=== PATIENT | female | born 1965 | race Caucasian/White ===

== ENCOUNTER 2016-06-18 15:58 | Inpatient (IN) | payer OTHER ==
[~2016-06-18] VITALS: Ht 160 cm; Wt 106.4 kg
[~2016-06-18 15:58] MED LIST: Meropenem Inj 1,000 MG in IV Premix 1 EACH IV SCH
[2016-06-18 16:03] VITALS: BP 127/81; PULSE 115; RESP 16; O2SAT 91
--- NOTE | 2016-06-18 16:33 | ED.REPORT ---
HPI-Abd Pain F 40 and Over Date of Service Jun 18, 2016 ED Provider: Dr. Brendon Christianson M.D. A healthy 51 year old female presents to the ED from Urgent Care with a perforated viscus on CT. She has had a week of LLQ abdominal pain, intermittent subjective fever, and alternating constipation/diarrhea. The pain is exacerbated with movement. At Urgent Care she was tender with a white count of 23.8 th/mm3. Imaging demonstrated pneumoperitoneum, bowel thickening, and pericolonic fat stranding in LLQ. She was transferred here for further work-up. The general surgeon, Dr. Gu, is aware of patient and will consult. The patient denies nausea. Her last liquid intake was 8oz water at 1500 this afternoon and her last meal was a piece of toast for breakfast this morning. Nursing Notes Stated Complaint: SEVERE ABDOMINAL ISSUES - FROM URGENT CARE Chief Complaint: Female Abdominal Pain Nursing Notes Reviewed: Yes Allergies: Coded Allergies: Fish Containing Products (Verified Allergy, Severe, anaphylaxis, 06/18/16) shellfish derived (Verified Allergy, Severe, anaphylaxis, 06/18/16) Penicillins (Verified Allergy, Unknown, ANAPHYLAXIS, 06/18/16) No Active Prescriptions or Reported Meds General Time Seen by MD: 16:33 Chief Complaint Abdominal pain Hx Obtained From: Patient Arrived By: Walk-in Sudden in Onset?: No Onset Occurred: 1 week ago Symptom Duration: Since onset Progression since Onset: Gradually worsening Location: : Diffuse Quality: Painful Severity: Current: Moderate Severity: Maximum: Moderate Associated with: Reports: Constipation, Diarrhea, Fever (Intermittent, subjective), Denies: Nausea Exacerbated by: Movement Pertinent Negative: Relieved by nothing Recent Healthcare: Recent doctor visit Similar Sx Previous: No Past Medical History Past Medical History Healthy Past Surgical History None reported Family History No colon cancer Smoking History Current Every Day Smoker Social History Very rare alcohol consumption Other Social History: Good social support, Ambulatory Status Independent Review of Systems Constitutional: Reports: Fever (Intermittent, subjective) GI: Reports: Abdominal pain, Constipation, Diarrhea, Denies: Nausea Complete sys rev & neg: except as marked. Physical Exam Vital Signs Vital Signs (First) Date Time Temp Pulse Resp B/P Pulse Ox O2 Delivery O2 Flow Rate FiO2 06/18/16 16:03 37.6 115 16 127/81 91 Initial VS: Reviewed Head / Eyes: Atraumatic, Normocephalic ENT: Conjunctiva normal, No scleral icterus Skin: Warm, Dry Neurologic: Alert, Oriented, Nonfocal Psychiatric: Mood/affect normal, Behavior normal, Normal thought content General/Constitutional: Awake, Alert Respiratory / Chest: Breath sounds = bilat, No respiratory distress Wheezing / Retractions: Positive: Wheezing moderate (Scattered) Cardiovascular: Heart rate NL, Regular rhythm, Heart sounds NL, No gallop, No murmurs, No rubs Abdomen: BS normoactive Tenderness/Guarding/Rebound: Positive: Tender LLQ... (with guarding) Interpretation & Diagnostics URGENT CARE 06/18/2016: ABDOMEN CT W/ IV AND ORAL CONTRAST IMPRESSION: 1. Focal bowel thickening, pericolonic fat stranding, and pneumoperitoneum as above. Although these findings may be associated with acute perforated diverticulitis, there are no definite diverticula visualized. Additionally, there is a questionable polypoid mass in this region. Neoplasm should be considered in the differential diagnosis. Surgical consultation recommended. These findings were discussed with Emilia Weeks at 3:15 PM on 06/18/16. 2. Probable cholelithiasis. No findings to suggest choledocholithiasis or acute cholecystitis. 3. Thickening of the medial limb of the left adrenal gland. Adrenal mass protocol CT or MRI recommended non-emergently to further characterize this finding. Dictated by: Pamela Dumont M.D. on 06/18/2016 at 15:11 Chemistry from Urgent Care reviewed. LFTs normal, creatinine normal at 0.73, glucose 105, potassium normal at 4.3, sodium 137, CO2 is 22. Lab Results Interpretation Result Diagram: 06/18/16 1720 Test 06/18/16 17:20 06/18/16 17:26 White Blood Count 22.3th/mm3 (3.8-10.1) Red Blood Count 5.12mil/mm3 (3.90-5.20) Hemoglobin 15.0g/dL (12.0-15.6) Hematocrit 44.1% (35.0-46.0) Mean Corpuscular Volume 86.1fL (81-100) Mean Corpuscular Hemoglobin 29.3pg (27.0-35.0) Mean Corpuscular Hemoglobin Concent 34.0% (32.0-37.0) Red Cell Distribution Width 13.1% (12.3-15.4) Platelet Count 329bil/L (150-400) Neutrophils (%) (Auto) 79.3% (40-74) Lymphocytes (%) (Auto) 14.7% (14-46) Monocytes (%) (Auto) 5.1% (4-12) Eosinophils (%) (Auto) 0.4% (0-5) Basophils (%) (Auto) 0.2% (0-3) Lactic Acid Level 0.9mmol/L (0.4-2.0) Urine Color Straw (YELLOW) Urine Appearance Clear (CLEAR,HAZY) Urine pH 6.0 (5.0-8.0) Urine Specific [place] <1.005 (1.003-1.035) Urine Protein Negativemg/dL (NEG,TRACE) Urine Glucose (UA) Negativemg/dL (NEGATIVE) Urine Ketones Negativemg/dL (NEGATIVE) Urine Occult Blood Negative (NEGATIVE) Urine Nitrite Negative (NEGATIVE) Urine Bilirubin Negative (NEGATIVE) Urine Urobilinogen Normalmg/dL (NORMAL) Urine Leukocyte Esterase Negative (NEGATIVE) Urine RBC 3-10/hpf (0-2) Urine WBC 0-5/hpf (0-5) Urine Epithelial Cells Occasional/hpf (NONE-MOD) Urine Crystals None seen (NONE SEEN) Urine Bacteria Few/hpf (NONE-FEW) Urine Hyaline Casts None/lpf (NONE) Urine Granular Casts None seen (NONE SEEN) Urine Waxy Casts None seen (NONE SEEN) Urine Red Blood Cell Casts None seen (NONE SEEN) Urine White Blood Cell Casts None seen (NONE SEEN) Urine Mucus None seen (None Seen) Urine Trichomonas None seen (NONE SEEN) Urine Yeast None (NONE SEEN) Urinalysis Comment None Urine Culture Reflexed Not indicated ECG Interpretation ECG Interpretation: Sinus tachycardia rate 113 Otherwise normal Time: 17:21 Interpreted by: ED physician X-Ray Chest Interpretation Chest Xray Interpretation: IMPRESSION: No acute cardiopulmonary findings. Dictated by: Pamela Dumont M.D. on 06/18/2016 at 17:07 View: Portable, 1 view Interpretation / Wet Read by: Interpret - Radiologist Re-Eval/Medical Decision Med Decision/Clinical Course 51-year-old female with perforated viscus sent from urgent care. She is hemodynamically stable to show some mild tachycardia. Has been evaluated by general surgery and will be treated with antibiotics and observation initially. IV meropenem as been started. Re-Evaluation/Progress : Time of Eval: 16:45 Patient Status: Condition improved Re-Evaluation/Progress Note: Discussed with patient Urgent Care CT results, diagnosis, and plan for consult with Dr. Gu and admit. Patient agrees with plan for care and all questions were addressed. Consultation #1: Referral / Consult Name: Nabor Gu MD Consulted With: Surgeon Call Returned at: 16:48 [employer] Supervisor: Will see patient, Agrees with eval, Agrees with plan Note: Will consult. Consultation #2: Referral / Consult Name: Nabor Gu MD Consulted With: Surgeon Call Returned at: 17:07 [employer] Supervisor: Agrees with eval, Agrees with plan, Accepts admit Counseled Regarding: Diagnosis, Need for admission Discharge & Departure Primary Impression: Perforated abdominal viscus Disposition: ADMITTED TO HOSPITAL Discharge Condition All VS Reviewed: Yes Condition: Stable Referrals: Ernesto Serrano MD (PCP) [place] Attestation Portions of this note were transcribed by Eloina Cain. I, Dr. Christianson, personally performed the history, physical exam, and medical decision-making; I reviewed and confirmed the accuracy of the information in the transcribed note. Signed by: Vivienne Winkler, 06/18/2016, 17:16 copies to: Ernesto Serrano MD, Donald L MD Jun 18, 2016 16:33 ELOINA CAIN Jun 18, 2016 16:49
[2016-06-18] MEDS ORDERED: 0.9% Sodium Chloride 1,000 ML IV ONE (16:40)
[2016-06-18] MEDS ORDERED: Ondansetron 2 mg/mL 2 mL Inj IV PRN (16:40)
[2016-06-18] MEDS ORDERED: Meropenem Inj 1,000 MG in IV Premix 1 EACH IV ONE (16:40)
[2016-06-18] MEDS ORDERED: HYDROmorphone 0.5 mg/0.5 mL iSecure Syringe IVPUSH PRN (16:40)
--- NOTE | 2016-06-18 17:09 | DRSVH ---
PROCEDURE: X-RAY CHEST ONE VIEW, PORTABLE ([id number]) INDICATIONS: wheezing, smoker TECHNIQUE: One view of the chest was acquired. COMPARISON: None. FINDINGS: Surgical changes and devices: None. Lungs and pleura: No pleural effusions or pneumothorax. Lungs are clear. Mediastinum: Mediastinal contours appear normal. Heart size is normal. Bones and chest wall: No suspicious bony lesions. Overlying soft tissues appear unremarkable. IMPRESSION: No acute cardiopulmonary findings. Dictated by: Pamela Dumont M.D. on 06/18/2016 at 17:07 Approved by: Pamela Dumont M.D. on 06/18/2016 at 17:07
[2016-06-18] MEDS ORDERED: Ondansetron 2 mg/mL 2 mL Inj IVPUSH PRN ×2 (17:50→18:40)
[2016-06-18] MEDS ORDERED: HYDROmorphone 0.5 mg/0.5 mL iSecure Syringe IV PRN (18:40)
--- NOTE | 2016-06-18 18:41 | NUR ---
Admit Patient report called by Sonali Gonzalez in the ED. Patient arrived via gurney to room 3018 at 1935. Patient was able to ambulate independently to bed. Patient completed antibiotic meropenem when she got into bed. Patient stated 3/10 pain in abdomen.
[2016-06-18 18:55] VITALS: BP 125/77; PULSE 111; RESP 20; O2SAT 92
[2016-06-18 19:07] LABS: APPEARANCE,URINE CLEAR (CLEAR,HAZY); COLOR,URINE STRAW (YELLOW); OCCULT BLOOD,URINE NEGATIVE (NEGATIVE); UROBILINOGEN,URINE NORMAL (NORMAL)
--- NOTE | 2016-06-18 19:16 | NUR ---
Med Rec Pt takes no medications routinely.
[2016-06-18 19:22] LABS: BASOPHILS % (AUTO) 0.2 % (0-3); EOSINOPHILS % (AUTO) 0.4 % (0-5); MONOCYTES % (AUTO) 5.1 % (4-12); Mean Corpuscular Hemoglobin 29.3 pg (27.0-35.0); Mean Corpuscular Volume 86.1 fL (81-100); NEUTROPHILS % (AUTO) 79.3 % (40-74); Platelet Count 329 bil/L (150-400)
--- NOTE | 2016-06-18 19:37 | HP ---
[address] [address] HISTORY AND PHYSICAL PATIENT: GAEL PRINCE : 1965 MR#: [id number] ADMIT: 06/18/2016 JOB ID: [id number] CHIEF COMPLAINT: A 51-year-old woman with perforated left colon. HISTORY OF PRESENT ILLNESS: Patient has been in a relatively good state of health until the past four or five days, where she developed some left-sided back pain and then left lower quadrant pain. She has been a bit constipated over the past week but did have a bowel movement a few days ago that she would describe as normal. She has had no change in her bowel habits over the past six months, no weight gain, no weight loss. She does not swallow toothpicks or fish bones. She has not had any enemas or colonic manipulation. She has never had a colonoscopy. She went to Urgent Care where CT scan was obtained demonstrating free air around the left colon. Her white count was noted to be 23,000. I was consulted. She was transferred over to the emergency department. PAST MEDICAL HISTORY: No significant medical history. MEDICATIONS: None. ALLERGIES: Allergy to: 1. PENICILLIN leading to anaphylaxis. 2. FISH-CONTAINING PRODUCTS. 3. SHELLFISH. SOCIAL HISTORY: Lives with her . Smokes one pack per day, negative daily alcohol intake. FAMILY HISTORY: Noncontributory. REVIEW OF SYSTEMS: Complete review of systems including cardiac and pulmonary are negative other than her smoking. PHYSICAL EXAMINATION: The patient's temperature is 37.6, her pulse is 115, her blood pressure is 127/81. Room air saturations 91%. Her sclerae are clear. Neck is supple. Neurologically, she is intact. Lungs are clear. Heart sounds are regular. She is overweight with a BMI of 39 and this is central obesity. She has minimal left CVA tenderness and left lower quadrant tenderness. No appreciable hernias. Extremities without edema. LABORATORY DATA: Pending. REPEAT IMAGING: I have reviewed her CT scan done as an outpatient, both the images and the report. I concur with the reading that there is a focal bowel wall thickening and pericolonic stranding with a pneumoperitoneum in the region of the sigmoid colon. You can see small amounts of gas going up as high as the diaphragmatic walker and the spleen and down into the left lower quadrant. There is really not a lot of free air. There is no sign of diverticulosis or diverticulitis. IMPRESSION/PLAN: Relatively healthy 51-year-old woman except for her smoking and her obesity with a spontaneous left colon perforation that has likely been going on for several days. She does not appear terribly ill, though by report, she has marked leukocytosis and she is a bit tachycardic. We talked about the options of therapy including immediate surgical intervention with a high likelihood of a colostomy or a resection and colostomy versus initial treatment with antibiotics which may be successful though it does carry the risk of developing a focal abscess and/or worsening systemic illness requiring laparotomy. I think that proceeding with antibiotic therapy is a very reasonable choice and this is the one she would prefer and given her overall relatively clinically benign appearance (except for her tachycardia and her white count), I think this is reasonable. We will place her on IV meropenem, keep her n.p.o. except for ice chips and watch her on telemetry.
[2016-06-18 19:39] VITALS: PULSE 109
[2016-06-18] MEDS: Lactated Ringer's 1,000 ML IV SCH (19:56)
[2016-06-18] MEDS: Heparin 5,000 Unit/mL Inj SUBQ SCH (19:56)
[2016-06-18 20:00] VITALS: PULSE 113
[2016-06-18 22:14] VITALS: BP 112/72; PULSE 107; RESP 18; O2SAT 90
[2016-06-18 22:36] VITALS: PULSE 123; O2SAT 94
[2016-06-19] VITALS (8 sets, daily range): BP systolic 104–118; BP diastolic 60–77; PULSE 92–107; RESP 18–24; O2SAT 91–94
[2016-06-19] MEDS ORDERED: 0.9% Sodium Chloride 250 ML ONE ×2 (00:08→16:35)
[2016-06-19] MEDS: Meropenem Inj 1,000 MG in IV Premix 1 EACH IV SCH ×3 (00:19→16:50)
[2016-06-19] MEDS: Lactated Ringer's 1,000 ML IV SCH ×2 (03:29→14:05)
--- NOTE | 2016-06-19 05:29 | NUR ---
Pain: Abdominal pain reported at a maximum of 3/10 through the night, which was acceptable to pt. Required no PRN pain medication. Tenderness to left lower abdomen with palpation. Temp 37.2-37.5 C. Tele is now SR per monitor and storage bin tender, rate in the 90s. Earlier, heart rate would increase 120-130s when up in room. Pt states this morning, "I don't feel sick enough to be here". Using call light for needs.
[2016-06-19 06:48] LABS: BASOPHILS % (AUTO) 0.2 % (0-3); EOSINOPHILS % (AUTO) 0.7 % (0-5); MONOCYTES % (AUTO) 5.7 % (4-12); Mean Corpuscular Hemoglobin 29.3 pg (27.0-35.0); NEUTROPHILS % (AUTO) 76.9 % (40-74); Platelet Count 268 bil/L (150-400)
[2016-06-19] MEDS: Heparin 5,000 Unit/mL Inj SUBQ SCH ×2 (08:53→21:48)
--- NOTE | 2016-06-19 10:17 | PCM.PNSURG ---
Subjective Date of Service: Jun 19, 2016 Date of Service: Jun 19, 2016 Visit Information: Reason for Visit Perforated sigmoid colon Date of Admission: Jun 18, 2016 at 17:49 Hospital Day # 2 Subjective: The patient is sitting up in bed resting comfortably, frustrated with the situation, wants to go downstairs and smoke a cigarette Gastrointestinal: No N/V, Passing Flatus, Passing Stool (liquid) Pain Management: IV Push Postop Activity: Ambulating in Room Only Objective Vital Sign- Last 8 Hours Date Time Temp Pulse Resp B/P Pulse Ox O2 Delivery O2 Flow Rate FiO2 06/19/16 10:02 36.5 99 22 113/64 93 Nasal Cannula 1.00 06/19/16 05:31 36.9 107 24 105/60 93 Nasal Cannula 2.00 Intake and Output- Last 8 Hour 06/19/16 Cumulative From/Thru 07:00 06/18/16 16:03 - 06/19/16 06:53 Intake Total 973 ml 2023 ml Balance 973 ml 2023 ml IV Total 973 ml 2023 ml General: Alert, Oriented X3, No Acute Distress Lungs: Coarse (basis) Heart: Regular Rate/Rhythm Abdomen: Soft, Appropriately tender (left lower quadrant), Non-distended, Normoactive bowel tones Extremities: Warm, Thigh&Calf Soft/Nontender Neuro: Grossly Neurologically Intact Catheters: None Result Diagram: 06/19/1661406/19/16614 Lab & Micro Results: WBC on admit 22.3 Today 16.1 Assessment & Plan Impression 51-year-old female admitted for a spontaneous left colon perforation, vital signs stable Problems: Plan 1. Left colon perforation - Continue to trend WBCs - Continue nothing by mouth except ice chips - Continue with IV antibiotics - Will need colonoscopy as an outpatient 2. Smoking cessation - Nicotine patch 3. Obesity BMI 41.6 - Weight management June Gastelum PA-C Jun 19, 2016 10:17
--- NOTE | 2016-06-19 15:58 | NUR ---
Social Work-screening: Data:EMR reviewed. Pt is a 51 y/o female who was admitted on 06/18/16 for perforated disc per H&P. Pt's insurance is [employer] and PCP is Ernesto Serrano MD. EMR reviewed. Pt resides at home with her and is independent at baseline. Pt has been up independent in her room. No anticipated discharge needs identified. SW will continue to follow if needs arise. Assessment:Pt who is independent at baseline. Plan:Pt to discharge home when medically stable via POV. No anticipated discharge needs identified. SW will continue to follow if needs arise. RICCARDO Quesada
[2016-06-20] VITALS (7 sets, daily range): BP systolic 111–127; BP diastolic 71–88; PULSE 85–101; RESP 18–20; O2SAT 91–96
[2016-06-20] MEDS: Lactated Ringer's 1,000 ML IV SCH ×2 (01:13→09:46)
[2016-06-20] MEDS: Meropenem Inj 1,000 MG in IV Premix 1 EACH IV SCH ×3 (01:13→18:21)
--- NOTE | 2016-06-20 06:43 | NUR ---
Uneventful night: Pt has been able to get more sleep tonight. NPO continues with ice chips. IV fluid infusing, IV ABX. Denies pain through the night.
[2016-06-20 06:50] LABS: BASOPHILS % (AUTO) 0.3 % (0-3); EOSINOPHILS % (AUTO) 1.2 % (0-5); MONOCYTES % (AUTO) 5.8 % (4-12); Mean Corpuscular Hemoglobin 29.4 pg (27.0-35.0); Mean Corpuscular Volume 87.6 fL (81-100); NEUTROPHILS % (AUTO) 76.5 % (40-74); Platelet Count 300 bil/L (150-400)
[2016-06-20] MEDS: Heparin 5,000 Unit/mL Inj SUBQ SCH ×2 (08:51→20:57)
--- NOTE | 2016-06-20 10:21 | PCM.PNSURG ---
Subjective Date of Service: Jun 20, 2016 Date of Service: Jun 20, 2016 Visit Information: Reason for Visit: Perforated sigmoid colon Date of Admission: Jun 18, 2016 at 17:49 Hospital Day # 3 Subjective: The patient states she is passing flatus, liquid brown stool and abdominal discomfort resolved. Postop General: No Complaints Gastrointestinal: No N/V, Passing Flatus, Passing Stool (liquid brown) Pain Management: IV Push Postop Activity: Ambulating in Room Only Objective Vital Sign- Last 8 Hours Date Time Temp Pulse Resp B/P Pulse Ox O2 Delivery O2 Flow Rate FiO2 06/20/16 09:40 36.6 85 20 127/72 93 Room Air 06/20/16 04:35 36.9 101 18 115/71 93 Room Air Intake and Output- Last 8 Hour 06/20/16 Cumulative From/Thru 07:00 06/18/16 16:03 - 06/20/16 06:27 Intake Total 800 ml 2823 ml Output Total 4 ml 7 ml Balance 796 ml 2816 ml Intake Oral 200 ml 200 ml IV Total 600 ml 2623 ml Output Stool Total 4 ml 7 ml # Voids 4 6 # Bowel Movements 1 General: Alert, Oriented X3 Lungs: Diminished (bases) Heart: Regular Rate/Rhythm Abdomen: Soft, Non-tender, Non-distended, Normoactive bowel tones Extremities: Warm, Thigh&Calf Soft/Nontender Neuro: Grossly Neurologically Intact Catheters: None Result Diagram: 06/20/16 0624 06/19/16 0615 Lab & Micro Results: WBC on admit 22.3 - 16.1 - 14.3 Assessment & Plan Impression 51-year-old female admitted for a spontaneous left colon perforation, vital signs stable Problems: Plan Plan 1. Left colon perforation - Continue to trend WBCs - Transition to Full liquid diet - Continue with IV antibiotics; transition to PO when tolerating solid food - Will need colonoscopy as an outpatient 2. Smoking cessation - Nicotine patch 3. Obesity BMI 41.6 - Weight management 4. May be off Tele to shower VTE Prophylaxis: Sub-Q Heparin (Unfractionated) Resuscitation Status: CPR: Attempt Resuscitation June Gastelum PA-C Jun 20, 2016 10:21
[2016-06-20] MEDS ORDERED: 0.9% Sodium Chloride 250 ML ONE (16:48)
--- NOTE | 2016-06-20 18:09 | NUR ---
Diet/IV Pt upgraded to a FL this AM. She has been tolerating diet well with no c/o N/V thus far. Plan is to try general diet in the AM. Pt's IV became reddened and tender this afternoon, pt reported discomfort when attempting to flush so IV dc'd. IV therapy called to place new one due to pt being a difficult start. Bed in lowest, locked position and call light in reach.
[2016-06-21] MEDS: Meropenem Inj 1,000 MG in IV Premix 1 EACH IV SCH ×2 (01:25→08:05)
[2016-06-21 02:26] VITALS: BP_SYST 119; BP_SYST 181; BP_DIAS 74; BP_DIAS 90; PULSE 55; PULSE 87; RESP 18; RESP 20; O2SAT 92; O2SAT 95
--- NOTE | 2016-06-21 05:32 | NUR ---
Uneventful Night: Pt rested intermittently through the night with no complaints of pain or discomfort. Denies SOB, N/V. Call light within reach, using appropriately. Pleasant and cooperative with care.
[2016-06-21 05:50] VITALS: BP 136/81; PULSE 93; RESP 18; O2SAT 90
[2016-06-21 06:25] LABS: BASOPHILS % (AUTO) 0.4 % (0-3); EOSINOPHILS % (AUTO) 2.1 % (0-5); MONOCYTES % (AUTO) 5.4 % (4-12); Mean Corpuscular Volume 86.6 fL (81-100); NEUTROPHILS % (AUTO) 63.6 % (40-74); Platelet Count 376 bil/L (150-400)
[2016-06-21] MEDS: Heparin 5,000 Unit/mL Inj SUBQ SCH (08:05)
--- NOTE | 2016-06-21 08:17 | PCM.PNSURG ---
Subjective Date of Service: Jun 21, 2016 Visit Information: Reason for Visit Perforated Disc Surgery/Surgery Date Post-Op Day # Date of Admission: Jun 18, 2016 at 17:49 Hospital Day #4 Subjective: Mild transient "gas" pain yesterday that resolved after passing flatus. Continues to have diarrheal-type bowel movements. No real abdominal pain. Eating solid foods with no nausea or vomiting. Ambulating in the hallway without assistance. Postop General: No Complaints Gastrointestinal: Good Appetite, Tolerating Oral Feedings, No N/V, Passing Stool, Diarrhea Pain Management: No or Minimal Pain Postop Activity: Ambulating Independently Objective Vital Sign- Last 8 Hours Date Time Temp Pulse Resp B/P Pulse Ox O2 Delivery O2 Flow Rate FiO2 06/21/16 05:50 36.7 93 18 136/81 90 Room Air 06/21/16 02:26 36.9 87 18 119/74 92 Room Air Intake and Output- Last 8 Hour 06/21/16 Cumulative From/Thru 07:00 06/18/16 16:03 - 06/21/16 06:03 Intake Total 700 ml 4648 ml Output Total 450 ml 459 ml Balance 250 ml 4189 ml Intake Oral 700 ml 1456 ml IV Total 3192 ml Output Urine Total 450 ml 450 ml Stool Total 9 ml # Voids 2 12 # Bowel Movements 0 1 General: Alert, Cooperative, No Acute Distress Lungs: Clear to Auscultation Heart: Regular Rate/Rhythm Abdomen: Soft, Non-tender, Protuberant, No masses Neuro: Normal Speech Catheters: None Result Diagram: 06/20/16 0624 06/19/16 0615 Lab & Micro Results: CBC this morning is pending Assessment & Plan Impression Primary diagnosis: Sigmoid colonic perforation, unknown etiology. HD #4, on antibiotics. Stable for discharge on oral antibiotics. Other diagnoses: 1. Daily cigarette smoker. 2. Obesity, BMI 41.6. Problems: Plan The patient will be discharged home today on oral antibiotics. She will follow- up in the office in 2 weeks. She will be scheduled for outpatient colonoscopy in one month. Pain Management: Tylenol VTE Prophylaxis: Sub-Q Heparin (Unfractionated) Resuscitation Status: CPR: Attempt Resuscitation copies to: Ernesto Serrano MD, Fred H PA-C Jun 21, 2016 08:17
--- NOTE | 2016-06-21 08:22 | PCM.DISURG ---
Surgical Discharge Instruction Date of Service Jun 21, 2016 Dates of Hospitalization Date of Hospital Admission Jun 18, 2016 at 17:49 Providers Admitting Physician: Nabor Gu MD Primary Care Physician: Ernesto Serrano MD Attending Physician: Nabor Gu MD Discharge Diagnosis Discharge Diagnosis Primary diagnosis: Sigmoid colonic perforation, unknown etiology. Other diagnoses: 1. Daily cigarette smoker. 2. Obesity, BMI 41.6. Diet Discharge Diet: No restrictions Activity Discharge Activity-General: No restrictions Dressing and Incisional Care Hygiene: May shower Follow Up Plan Mid-level Provider (F9): Jake Montero PA-C Follow-up appointment: Weeks (2) Call your provider for: Fever, Chills, Increasing abdominal pain, Nausea, Vomiting Jake Montero PA-C Jun 21, 2016 08:22
[2016-06-21] MEDS ORDERED: LEVO750T39 PO (08:23)
[2016-06-21] MEDS ORDERED: METR500T PO (08:23)
--- NOTE | 2016-06-21 08:28 | PCM.DC.SUR ---
Discharge Summary Date of Service: Jun 21, 2016 Date of Hospital Admission: Jun 18, 2016 at 17:49 Date of Discharge: 06/21/2015 Diagnosis at Time of Discharge Primary diagnosis: Sigmoid colonic perforation, unknown etiology. Other diagnoses: 1. Daily cigarette smoker. 2. Obesity, BMI 41.6. Problems: Brief History and Physical: The patient had been in a relatively good state of health until the four or five days prior to admission, where she developed some left-sided back pain and then left lower quadrant pain. She had been a bit constipated over the past week but did have a bowel movement a few days prior to admission that she would describe as normal. She had no change in her bowel habits over the past six months, no weight gain, no weight loss. She did not swallow toothpicks or fish bones. She had not had any enemas or colonic manipulation. She has never had a colonoscopy. She went to Urgent Care where CT scan was obtained demonstrating free air around the left colon. Her white count was noted to be 23,000. Consultants: None Hospital Course: The patient was admitted for conservative management with nothing by mouth, IV hydration, and antibiotics. Her condition quickly improved and her white count began normalizing quickly. Diet was initiated and advanced. She was eating solid foods by the time of discharge. Pathology: None Disposition: The patient was discharged to home on her fourth hospital day at which time she was afebrile, eating solid foods, and abdominal pain had resolved. Follow-up Plan: She will follow-up with me in the office in 2 weeks at which time arrangements will be made for colonoscopy in approximately one month from now. Levofloxacin (Levofloxacin) 750 Mg Tablet 750 MG PO DAILY Metronidazole (Flagyl) 500 Mg Tablet 500 MG PO Q8H copies to: Ernesto Serrano MD, Fred H PA-C Jun 21, 2016 08:28
[2016-06-21 09:51] VITALS: BP 123/84; PULSE 99; RESP 18; O2SAT 93
--- NOTE | 2016-06-21 11:06 | NUR ---
Discharge Pt d/c home with at 1030 assisted by an aide. Pt denied having pain. Tele and IV d/c prior to leaving. All personal belongings left with pt. All d/c info discussed with family and questions answered. VS prior to d/c stable.
--- NOTE | 2016-06-21 11:51 | NUR ---
Social Work-discharge: Data:EMR Reviewed.Pt is on day 3 of hospitalization for perforated disc per H&P. Pt is medically stable to discharge home today. Per RN notes, pt has been up independent in her room. Pt's to provide transport home. No discharge needs identified. All updated and agreeable to plan. Assessment:pt who is independent at baseline. Plan:Pt to discharge home today via POV. No discharge needs identified. All updated and agreeable to plan. RICCARDO Quesada
== END 2016-06-21 10:30 | disposition home or self-care (01) | DRG 394 ==
LOC: SED 15:58 → MPC 17:49
PROVIDERS: ADMIT Surgery; ATTEND Surgery
DX: K63.1 Perforation of intestine (nontraumatic) (principal); Z68.41 Body mass index [BMI] 40.0-44.9, adult; F17.210 Nicotine dependence, cigarettes, uncomplicated; E66.09 Other obesity due to excess calories